=== PATIENT | female | born 1980 | race Caucasian/White ===

== ENCOUNTER → 2019-02-14 | Outpatient (CLI) | payer BC | LOC: SUN.DIA 13:43 | DX: E11.40 Type 2 diabetes mellitus with diabetic neuropathy, unspecified (principal) | CPT/HCPCS: G0108 ==

== ENCOUNTER → 2019-03-07 | Outpatient (CLI) | payer BC | LOC: SUN.DIA 08:35 | DX: E11.40 Type 2 diabetes mellitus with diabetic neuropathy, unspecified (principal) | CPT/HCPCS: G0108 ==

== ENCOUNTER → 2019-04-18 | Outpatient (CLI) | payer BC | LOC: DIA.ED 08:46 | DX: E11.9 Type 2 diabetes mellitus without complications (principal); E11.40 Type 2 diabetes mellitus with diabetic neuropathy, unspecified | CPT/HCPCS: G0108 ==